=== PATIENT | male | born 1975 | race Caucasian/White ===

== ENCOUNTER 2016-12-08 12:45 | Emergency (ER) | payer OTHER ==
[2016-12-08] MEDS ORDERED: fentaNYL 100 MCG/2 ML INJ IVP ONE ×2 (12:50→13:15)
[2016-12-08 13:02] VITALS: TEMP 98.6
--- NOTE | 2016-12-08 13:13 | EDPHY ---
H & P Time Seen by Provider: 12/08/16 12:51 HPI/ROS: CHIEF COMPLAINT: Left foot pain HISTORY OF PRESENT ILLNESS: Patient is a 41-year-old male with previous left ankle reconstructive surgery who presents emergency department after sustaining a fall while working. Patient was standing on a bobcat fork lift with the teeth released. This caused him to drop with large timbers. He abraded his left anterior flowers. Complains of moderate left foot pain. It is worse with movement. He has mild discomfort in his left ankle. He is unable to ambulate. No numbness or tingling. Patient denies any other injury. He did not strike his head or lose consciousness. No neck or back pain. REVIEW OF SYSTEMS: My complete review of systems is negative except as mentioned in the HPI. 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 Past Medical/Surgical History: Includes left ankle reconstructive surgery Smoking Status: Never smoked Physical Exam: Vitals noted General Appearance: Alert and no distress. Head: Pupils equal. Normal. No trauma Neck: No tenderness palpation. Full range of motion. Respiratory: No respiratory distress. Cardiac: regular rate and rhythm. Extremities: patient has a long abrasion on left anterior flowers. There is mild lower tibial tenderness palpation. No proximal tib-fib tenderness palpation. Patient has mild discomfort over his mid foot. This is fairly diffuse. Mild swelling on the dorsal aspect of the midfoot. No laceration. Ankle is nontender. Noted surgical scar. Skin: No rashes or lesions. Neuro: Alert. Normal mood and affect. Constitutional: Initial Vital Signs Temperature (C) 37.0 C 12/08/16 12:45 Heart Rate 88 12/08/16 12:45 Respiratory Rate 14 12/08/16 12:45 Blood Pressure 125/82 H 12/08/16 12:45 O2 Sat (%) 93 12/08/16 12:45 O2 Delivery Mode Room Air Allergies/Adverse Reactions: venom-honey bee [bee venom (honey bee)] Allergy (Verified 06/03/15 12:49) Home Medications: Medication Instructions Recorded HYDROcodone/APAP 10/325 [[place] 1 - 2 each PO Q4-6PRN PRN #20 tab 06/03/15 10/325] Ondansetron Odt [Zofran Odt 4 mg 4 mg PO Q4 PRN #10 tab 01/04/16 (RX)] Ondansetron Odt [Zofran Odt 4 mg 4 mg PO Q4PRN PRN #11 tab 12/08/16 (*)] oxyCODONE/APAP 5/325 [Percocet 1 - 2 tab PO Q4PRN PRN #30 tab 12/08/16 5/325 (*)] Medical Decision Making - Diagnostics Imaging Results: Imaging Impressions Ankle X-Ray 12/08/16 13:09 Impression: Fractured proximal second metatarsal associated with widening of the Lisfranc and first cuneiform-metatarsal joints. 2. Left Ankle Series, 3 Views History: Pain following trauma. Fall. Comparison: February 11, 2014 Findings: There is chronic ankle joint and hindfoot fusion which appears stable and is associated with a stable ununited fracture of the distal tibial or shaft. No acute fracture is identified. Impression: Nothing acute identified in the ankle. Foot X-Ray 12/08/16 13:09 Impression: Fractured proximal second metatarsal associated with widening of the Lisfranc and first cuneiform-metatarsal joints. 2. Left Ankle Series, 3 Views History: Pain following trauma. Fall. Comparison: February 11, 2014 Findings: There is chronic ankle joint and hindfoot fusion which appears stable and is associated with a stable ununited fracture of the distal tibial or shaft. No acute fracture is identified. Impression: Nothing acute identified in the ankle. Extremity CT 12/08/16 13:56 Impression: 1. Homolateral Lisfranc fracture with lateral subluxation of comminuted fractures of the proximal second and third metatarsals with a nondisplaced fracture of the fourth metatarsal. 2. Comminuted mildly displaced fractures of the distal cuneiforms. 3. Possible avulsion fracture of the lateral cuboid. 4. Old unfused fracture of the distal fibula with arthrodesis of the hindfoot as above Findings discussed with Dr. Danielle Little on December 08, 2016 at 1503 hours. ED Course/Re-evaluation: In the emergency department I discussed possible etiologies with the patient. I answered all his questions. He did not want pain medication at this time. X-ray of foot and ankle: Please refer the dictated report. I discussed the results with the patient. I answered all his questions. Orthopedics was paged. I discussed case with Dr. Curtis office. His PA was in the emergency department to evaluate the images and the patient. A CT scan of the patient's left foot was ordered I discussed the case again with the PA who consulted with Dr. Curtis. He recommended the patient be seen by Dr. Sandy. Patient should be placed in a posterior and stirrup splint and made nonweightbearing. I discussed this plan with the patient answered all his questions. He was neurovascular intact distally. I paged Dr. Sandy's office. Dr. Sandy's office re-paged. I was informed by the tech to Dr. Sandy is out of the office. There is no one in his office until the of this month. I re-paged Dr. Curtis. I discussed this with Dr. Curtis. He states the patient can follow up in his office or with his orthopedic surger at [facility]. I discussed this plan with the patient. I answered all his questions. His splint was in place. He is neurovascularly intact distally prior to leaving. He was given crutches. He will be nonweightbearing. He will follow up with Orthopedics. Differential Diagnosis: My differential includes but is not limited to fracture, dislocation, sprain, strain, contusion - Data Points Medications Given: Discontinued Medications Fentanyl (Sublimaze) 50 mcg IVP EDNOW ONE Stop: 12/08/16 12:51 Last Admin: 12/08/16 12:50 Dose: 50 mcg Fentanyl (Sublimaze) 50 mcg IVP EDNOW ONE Stop: 12/08/16 13:16 Last Admin: 12/08/16 13:15 Dose: 50 mcg Oxycodone/Acetaminophen (Percocet 5/325) 2 tab PO EDNOW ONE Stop: 12/08/16 15:01 Last Admin: 12/08/16 15:18 Dose: 2 tab Departure - Departure Disposition: Home, Routine, Self-Care Clinical Impression: Left foot pain, Lisfranc fracture Condition: Good Instructions: Foot Fracture in Adults (ED) Additional Instructions: You have a Lisfrank fracture of your foot. You also have communited fractures of your cuniform bones. You need close follow up with a foot/ankle specialist. Referrals: Juan Luis Sandy MD [Medical Doctor] - 5-7 days, call for appt. Jose Curtis MD [Medical Doctor] - 5-7 days, call for appt. Domonique Juan DPM [Doctor of Podiatric Medicine] - 5-7 days, call for appt. Prescriptions: Ondansetron Odt [Zofran Odt 4 mg (*)] 4 mg PO Q4PRN PRN #11 tab PRN Reason: For Nausea & Vomiting oxyCODONE/APAP 5/325 [Percocet 5/325 (*)] 1 - 2 tab PO Q4PRN PRN #30 tab PRN Reason: For Moderate To Severe Pain
[2016-12-08] MEDS ORDERED: fentaNYL 100 MCG/2 ML INJ ONE ×2 (13:16→13:47)
[2016-12-08] MEDS ORDERED: HYDROmorphONE/DILAUDID 1 MG/ML SYR IVP PRN (14:00)
[2016-12-08] MEDS ORDERED: HYDROmorphONE/DILAUDID 1 MG/ML SYR ONE (14:28)
[2016-12-08] MEDS ORDERED: OXYCODONE/APAP 5/325 TAB ONE (14:56)
[2016-12-08] MEDS ORDERED: OXYCODONE/APAP 5/325 TAB PO ONE (15:00)
[2016-12-08 16:07] VITALS: BP 107/70; PULSE 78; RESP 16; O2SAT 96
== END 2016-12-08 16:06 | disposition home or self-care (01) ==
LOC: EDUNIT#
DX: S92.302A Fracture of unspecified metatarsal bone(s), left foot, initial encounter for closed fracture (principal); W19.XXXA Unspecified fall, initial encounter
CPT/HCPCS: 96374; J1170; J3010

== ENCOUNTER 2017-11-07 09:21 | Emergency (ER) | payer OTHER ==
[2017-11-07 09:27] VITALS: BP 132/82
--- NOTE | 2017-11-07 10:05 | EDPHY ---
H & P Stated Complaint: L flank pain , groin pain x 1 week-worse today Time Seen by Provider: 11/07/17 09:34 HPI/ROS: CHIEF COMPLAINT: Left flank pain HISTORY OF PRESENT ILLNESS: 42-year-old male presents with left flank pain. Onset of flank pain 1 week ago, waxing and waning since then. Taking ibuprofen 600 mg every 4-6 hours. This morning the pain worsened and he took Percocet 10 mg orally as well as ibuprofen 600 mg orally. Pain is currently 2/10. No associated symptoms, specifically no vomiting, fever or bloody urine. History of kidney stone x2 in the past. REVIEW OF SYSTEMS: complete 10 point ROS negative except at noted in the HPI - Medical/Surgical History Hx Asthma: No Hx Chronic Respiratory Disease: No Hx Diabetes: No Hx Cardiac Disease: No Hx Renal Disease: No Hx Cirrhosis: No Hx Alcoholism: No Hx HIV/AIDS: No Hx Splenectomy or Spleen Trauma: No Other PMH: kidney stone, CHI, cataract R eye surgery, 8 R ankle surgeries to repair trauma - Social History Smoking Status: Never smoked - Physical Exam Exam: General Appearance: Alert, pleasant Eyes: Pupils equal and round, no conjunctival pallor or injection ENT, Mouth: Mucous membranes moist Neck: Normal inspection Respiratory: Lungs are clear to auscultation Cardiovascular: Regular rate and rhythm Gastrointestinal: Abdomen is soft and nontender Back: No CVA tenderness Neurological: A&O, nonfocal, normal gait Skin: Warm and dry Extremities: Normal inspection Psychiatric: Mood and affect normal Constitutional: Initial Vital Signs Temperature (C) 36.9 C 11/07/17 09:24 Heart Rate 67 11/07/17 09:24 Respiratory Rate 18 11/07/17 09:24 Blood Pressure 132/82 H 11/07/17 09:24 O2 Sat (%) 98 11/07/17 09:24 Allergies/Adverse Reactions: venom-honey bee [bee venom (honey bee)] Allergy (Verified 06/03/15 12:49) Home Medications: Medication Instructions Recorded Percocet 10-325 mg Tablet 11/07/17 Medical Decision Making ED Course/Re-evaluation: This patient presents with left flank pain, consistent with renal colic. CT scan of the abdomen pelvis was ordered because of prolonged symptoms. Prior to CT scan, the patient passed a kidney stone and the pain completely resolved. CT scan was canceled. Stone sent to pathology for analysis. He will follow up with his primary care physician. Differential Diagnosis: Differential diagnosis includes though it is not limited to appendicitis, cholecystitis, diverticulitis, pyelonephritis, bowel perforation, small bowel obstruction. - Data Points Laboratory Results: Laboratory Results 11/07/17 10:00 11/07/17 10:00 11/07/17 11/07/17 11/07/17 Unknown 10:00 10:00 WBC RBC Hgb Hct MCV MCH MCHC RDW Plt Count MPV Neut % (Auto) Lymph % (Auto) [place] % (Auto) Eos % (Auto) Baso % (Auto) Nucleat RBC Rel Count Absolute Neuts (auto) Absolute Lymphs (auto) Absolute Monos (auto) Absolute Eos (auto) Absolute Basos (auto) Absolute Nucleated RBC Immature Gran % Immature Gran # Turbidity Cancelled Sodium Cancelled Potassium Cancelled Chloride Cancelled Carbon Dioxide Cancelled Anion Gap Cancelled BUN Cancelled Creatinine Cancelled Estimated GFR Cancelled Glucose Cancelled Calcium Cancelled Specimen Hemolysis Cancelled Urine Color YELLOW Urine Appearance CLEAR Urine pH 6.0 (5.0-7.5) Ur Specific [place] 1.012 (1.002-1.030) Urine Protein NEGATIVE (NEGATIVE) Urine Ketones NEGATIVE (NEGATIVE) Urine Blood 2+ H (NEGATIVE) Urine Nitrate NEGATIVE (NEGATIVE) Urine Bilirubin NEGATIVE (NEGATIVE) Urine Urobilinogen NEGATIVE EU EU (0.2-1.0) Ur Leukocyte Esterase NEGATIVE (NEGATIVE) Urine RBC 25-50 /hpf H /hpf (0-3) Urine WBC 1-3 /hpf /hpf (0-3) Ur Epithelial Cells NONE SEEN /lpf /lpf (NONE-1+) Urine Mucus TRACE /lpf /lpf (NONE-1+) Urine Glucose NEGATIVE (NEGATIVE) Stone Source Pending Stone Weight Pending Stone Composition Pending Stone Composition 2 Pending Stone Nidus Pending 11/07/17 10:00 WBC Cancelled RBC Cancelled Hgb Cancelled Hct Cancelled MCV Cancelled MCH Cancelled MCHC Cancelled RDW Cancelled Plt Count Cancelled MPV Cancelled Neut % (Auto) Cancelled Lymph % (Auto) Cancelled [place] % (Auto) Cancelled Eos % (Auto) Cancelled Baso % (Auto) Cancelled Nucleat RBC Rel Count Cancelled Absolute Neuts (auto) Cancelled Absolute Lymphs (auto) Cancelled Absolute Monos (auto) Cancelled Absolute Eos (auto) Cancelled Absolute Basos (auto) Cancelled Absolute Nucleated RBC Cancelled Immature Gran % Cancelled Immature Gran # Cancelled Turbidity Sodium Potassium Chloride Carbon Dioxide Anion Gap BUN Creatinine Estimated GFR Glucose Calcium Specimen Hemolysis Urine Color Urine Appearance Urine pH Ur Specific [place] Urine Protein Urine Ketones Urine Blood Urine Nitrate Urine Bilirubin Urine Urobilinogen Ur Leukocyte Esterase Urine RBC Urine WBC Ur Epithelial Cells Urine Mucus Urine Glucose Stone Source Stone Weight Stone Composition Stone Composition 2 Stone Nidus Departure - Departure Disposition: Home, Routine, Self-Care Clinical Impression: Ureteral calculus, left Condition: Good Instructions: Ureteral Stones (ED) Referrals: Vance Goyal MD [[facility] Primary Care Provider] - As per Instructions
== END 2017-11-07 10:16 | disposition home or self-care (01) ==
DX: N20.1 Calculus of ureter (principal)
CPT/HCPCS: 82365-90